=== PATIENT | male | born 1965 | race Caucasian/White ===

== ENCOUNTER 2021-12-07 20:36 | Emergency (ER) | payer OTHER ==
[~2021-12-07] VITALS: Ht 180.3 cm; Wt 90.7 kg
--- NOTE | 2021-12-07 20:50 | NUR ---
BIBS FOR C.O POSTERIOR NECK PAIN RADIATING TO L SHOULDER AND L ARM PAIN X 3 DAYS. -CP, FEVER OT CHILLS. + OCCASIONAL HARD TIME BREATHING . PATIENT IS PLACED IN BED 3 ER ON MONITOR. VSS. WILL CONT TO MONITOR
[2021-12-07] MEDS ORDERED: CYCLOBENZAPRINE 10 MG TABLET ONE (20:59)
[2021-12-07] MEDS ORDERED: KETOROLAC TROMETHAMINE INJ 30 MG/ML VIAL ONE (20:59)
[2021-12-07] MEDS ORDERED: CYCLOBENZAPRINE 10 MG TABLET PO ONE (21:00)
[2021-12-07] MEDS ORDERED: KETOROLAC TROMETHAMINE INJ 60 MG/2 ML VIAL IM ONE (21:00)
--- NOTE | 2021-12-07 21:00 | NUR ---
PT TAKEN FOR CT SCAN
[2021-12-07] MEDS ORDERED: CYCL5TAB PO (21:45)
[2021-12-07] MEDS ORDERED: IBUP-1957 PO (21:45)
[2021-12-07 21:54] VITALS: BP 137/98
--- NOTE | 2021-12-07 21:54 | NUR ---
Patient discharged to home in stable condition. Written and verbal after care instructions given. Patient verbalizes understanding of instruction.
== END 2021-12-07 21:55 | disposition home or self-care (01) ==
LOC: ER 20:59
DX: M54.12 Radiculopathy, cervical region (principal); I10 Essential (primary) hypertension; E11.9 Type 2 diabetes mellitus without complications; Z60.2 Problems related to living alone; Z79.899 Other long term (current) drug therapy
CPT/HCPCS: 72125; 96372; 99284; J1885